=== PATIENT | male | born 1955 | race Caucasian/White ===

== ENCOUNTER 2017-10-23 10:52 | Inpatient (IN) | payer MEDICAID | END 2017-10-28 09:50 | disposition home or self-care (01) | DRG 392 | LOC: D.ER 10:52 → D.SDCHOLD 15:23 → D.MS 18:40 | PROC: 0DB38ZX Excision of Lower Esophagus, Via Natural or Artificial Opening Endoscopic, Diagnostic (ICD-10-PCS; principal; 2017-10-26) | PROC: 0DB78ZX Excision of Stomach, Pylorus, Via Natural or Artificial Opening Endoscopic, Diagnostic (ICD-10-PCS; 2017-10-26) | DX: K59.00 Constipation, unspecified (principal); N17.9 Acute kidney failure, unspecified; K22.10 Ulcer of esophagus without bleeding; M96.830 Postprocedural hemorrhage of a musculoskeletal structure following a musculoskeletal system procedure; R10.13 Epigastric pain; K29.70 Gastritis, unspecified, without bleeding; D50.0 Iron deficiency anemia secondary to blood loss (chronic); E86.0 Dehydration; I25.10 Atherosclerotic heart disease of native coronary artery without angina pectoris; F17.200 Nicotine dependence, unspecified, uncomplicated; I10 Essential (primary) hypertension; E11.9 Type 2 diabetes mellitus without complications; E78.5 Hyperlipidemia, unspecified; F32.9 Major depressive disorder, single episode, unspecified ==

== ENCOUNTER 2018-08-30 13:10 | Emergency (ER) | payer MEDICAID ==
[~2018-08-30] VITALS: Ht 177.8 cm; Wt 96.4 kg
[~2018-08-30 13:10] MED LIST: AMOXICILLIN500 M1 PO; BUPROPION XL300 MG PO; CARAFATE1 G/10 ML PO; COLACE100 MG PO; ELAVIL25 MG PO; FLOMAX0.4 MG PO; GLUCOPHAGE1000 MG PO; GLUCOTROL 5 MG T5 MG PO; MIRALAX17 GM PO; MOBIC7.5 MG PO; NEURONTIN600 MG PO; NORCO 7.5/325 T1 TA1 PO; PLAVIX75 MG PO; PRAVACHOL20 MG; PRINIVIL10 MG; PROTONIX40 MG PO; ROBAXIN-750750 MG PO; VISTARIL25 MG PO
[2018-08-30 13:51] VITALS: Ht 177.8 cm; Wt 96.4 kg
[2018-08-30] MEDS ORDERED: KEFLEX500 MG PO (15:17)
[2018-08-30] MEDS ORDERED: ULTRAM50 MG PO (15:18)
[2018-08-30 15:48] VITALS: BP 126/59
== END 2018-08-30 15:48 | disposition home or self-care (01) ==
LOC: D.ER 13:10
DX: S61.411A Laceration without foreign body of right hand, initial encounter (principal); W29.8XXA Contact with other powered hand tools and household machinery, initial encounter; Y93.89 Activity, other specified; Y92.89 Other specified places as the place of occurrence of the external cause; Z86.73 Personal history of transient ischemic attack (TIA), and cerebral infarction without residual deficits; E11.9 Type 2 diabetes mellitus without complications; F17.200 Nicotine dependence, unspecified, uncomplicated